=== PATIENT | male | born 1980 | race Two or more races ===

== ENCOUNTER 2024-09-17 06:12 | Day surgery (SDC) | payer OTHER, SELFPAY ==
[2024-09-17] VITALS (7 sets, daily range): BP systolic 124–137; BP diastolic 73–87; BMI 28.8
[2024-09-17] MEDS: NORMOSOL-R/PLASMALYTE-A 1000 IV (07:41)
[2024-09-17] MEDS: TYLENOL 1000 MG PO (08:24)
== END 2024-09-17 13:44 | disposition home or self-care (01) ==
LOC: SDS 06:12
PROVIDERS: ATTENDING PHYSICIAN Otolaryngology Facial Plastic Surgery
DX: D11.0 Benign neoplasm of parotid gland (principal); R22.1 Localized swelling, mass and lump, neck
CPT/HCPCS: 42420; 15733; 88307